=== PATIENT | male | born 2000 | race Caucasian/White ===

== ENCOUNTER 2022-06-21 13:48 | Emergency (ER) | payer OTHER, SELFPAY ==
[2022-06-21] MEDS ORDERED: Ondansetron PF 4 MG/2 ML Vial ONE (13:53)
[2022-06-21] MEDS ORDERED: Fentanyl 100 MCG/2 ML VIAL ONE (13:56)
[2022-06-21] MEDS ORDERED: Boostrix 0.5 ML (Tdap) VIAL (>/=7 yrs of age) ONE (14:00)
[2022-06-21 14:17] LABS: #Basophils 0.1 thou/uL (0.0-0.2); #Eosinphils 0.4 thou/uL (0.0-0.7); #Lymphocytes 2.7 thou/uL (1.20-3.40); #Monocytes 1.5 thou/uL (0.11-0.59); #Neutrophils 14.4 thou/uL (1.40-6.50); %Basophils 0.4 % (0.0-1.0); %Eosinophils 2.3 % (0.0-10.0); %Lymphocytes 14.2 % (28.0-48.0); %Monocytes 7.9 % (0.0-4.0); %Neutrophils 75.1 % (31.0-61.0); Hemoglobin 15.7 g/dL (14.0-18.0); Mean Corpuscular HGB CONC 33.6 g/dL (32.0-36.0); Mean Corpuscular Hemoglobin 32.5 pg (25.0-35.0); Mean Corpuscular Volume 96.6 fl (78.0-98.0); Mean Platelet Volume 7.7 fL (7.4-10.4); Platelet Count 393 10x3/uL (130-400); RBC Distribution Width 12.2 % (11.5-14.5); Red Blood Cell (RBC) Count 4.83 mill/uL (4.00-5.20); White Blood Cell (WBC) Count 19.2 10x3/uL (4.8-10.8)
[2022-06-21 14:42] LABS: ALT (SGPT) 24 U/L (8-55); AST (SGOT) 39 U/L (5-34); Acetaminophen Less than 10.0 mcg/mL (10.0-30.0); Albumin 4.4 g/dL (3.5-5.0); Alcohol Less than 10 mg/dL (Less than 10); Alkaline Phosphatase 117 U/L (50-130); Anion Gap 19 mmol/L (10-20); BUN (Urea Nitrogen) 14 mg/dL (8.9-20.6); Bilirubin, Total 0.6 mg/dL (0.2-1.2); Calc. Creatinine Clearance 0 mL/min (70-130); Calcium 9.3 mg/dL (7.8-10.44); Carbon Dioxide 18 mmol/L (22-29); Chloride 105 mmol/L (98-107); Estimated GFR 127; Globulin 3.1 g/dL (2.4-3.5); Glucose 118 mg/dL (70-105); Lipase 12 U/L (8-78); Potassium 4.1 mmol/L (3.5-5.1); Protein, Total 7.5 g/dL (6.0-8.3); Salicylate Less than 8.0 mg/dL (15.0-30.0); Sodium 138 mmol/L (136-145)
[2022-06-21] MEDS ORDERED: Lidocaine 1% w/Epinephrine 1:100K 20 ML VIAL ONE (15:21)
[2022-06-21] MEDS ORDERED: Iopamidol-370 76% 500 ML 1 ML ONE (15:35)
== END 2022-06-21 17:05 | disposition short-term general hospital (02) ==
LOC: ERS 13:48
DX: S02.842A Fracture of lateral orbital wall, left side, initial encounter for closed fracture (principal); S71.101A Unspecified open wound, right thigh, initial encounter; F17.290 Nicotine dependence, other tobacco product, uncomplicated; W22.09XA Striking against other stationary object, initial encounter
CPT/HCPCS: 12002; 70450; 71045; 71260; 72125; 74177; 80053; 80307; 83690; 84484; 85025; 90471; 90715; 93005; 96374; 96375; G0390; J2405; J3010; Q9967